=== PATIENT | male | born 1975 | race African-American/Black ===

== ENCOUNTER 2017-11-27 18:22 | Emergency (ER) | payer OTHER ==
--- NOTE | 2017-11-27 19:47 | ER Document Report ---
ED General - General Mode of Arrival: Ambulatory Information source: Patient TRAVEL OUTSIDE OF THE [place] IN LAST 30 DAYS: No <BOZENA FRAZIER - Last Filed: 11/27/17 22:43> <KARINA EID - Last Filed: 11/28/17 02:01> - General Chief Complaint: Lip Swelling Stated Complaint: LIP SWOLLEN Time Seen by Provider: 11/27/17 19:38 Notes: 42 y.o. male with DM, depression, anxiety and HTN for which he takes Lisinopril presents to the ED with lip edema of onset 0500 this morning. He reports taking Lisinopril today but reports swelling prior to taking his does today. He denies any itchiness to his lips or throat, swelling to his throat or any trouble breathing. (BOZENA FRAZIER) - Related Data Allergies/Adverse Reactions: MILA Inhibitors Allergy (Intermediate, Verified 11/27/17 22:33) Facial swelling Past Medical History - General Information source: Patient, [facility] Records - Social History Smoking Status: Unknown if Ever Smoked Frequency of alcohol use: Occasional Drug Abuse: Marijuana - per previous records Lives with: Spouse/Significant other Family History: Hypertension - Past Medical History Cardiac Medical History: Reports: Hx Hypertension Endocrine Medical History: Reports: Hx Diabetes Mellitus Type 2 GI Medical History: Reports: Hx Gastroesophageal Reflux Disease Psychiatric Medical History: Reports: Hx Anxiety, Hx Depression Past Surgical History: Reports: Hx Orthopedic Surgery - left ankle, right arm - Immunizations Hx Diphtheria, Pertussis, Tetanus Vaccination: Yes <BOZENA FRAZIER - Last Filed: 11/27/17 22:43> Review of Systems - Review of Systems Constitutional: No symptoms reported EENT: See HPI, Other - Lip swelling. denies: Throat swelling Cardiovascular: No symptoms reported Respiratory: See HPI Gastrointestinal: No symptoms reported Genitourinary: No symptoms reported Male Genitourinary: No symptoms reported Musculoskeletal: No symptoms reported Skin: No symptoms reported Hematologic/Lymphatic: No symptoms reported Neurological/Psychological: No symptoms reported <BOZENA FRAZIER - Last Filed: 11/27/17 22:43> Physical Exam <BOZENA FRAZIER - Last Filed: 11/27/17 22:43> <KARINA EID - Last Filed: 11/28/17 02:01> - Vital signs Vitals: Temp Pulse Resp BP Pulse Ox 98.7 F 107 H 16 131/77 H 98 11/27/17 18:28 11/27/17 18:28 11/27/17 18:28 11/27/17 18:28 11/27/17 18:28 - Notes Notes: Physical Exam: General: Alert, no acute distress. HEENT: Normocephalic. Atraumatic. PERRL. Extraocular movements intact. Oropharynx clear. Edema to bilateral upper lip. Lower lip with LT sided edema. Neck: Supple. Non-tender. Respiratory: No respiratory distress. Clear and equal breath sounds bilaterally. Cardiovascular: Regular rate and rhythm. Abdominal: Normal Inspection. Non-tender. No distension. Normal Bowel Sounds. Back: Non-tender. No deformity or step off. Extremities: Moves all four extremities. Upper extremities: Normal inspection. Normal ROM. Lower extremities: Normal inspection. No edema. Normal ROM. Neurological: Normal cognition. AAOx3. Normal speech. Psychological: Normal affect. Normal Mood. Skin: Warm. Dry. Normal color. (BOZENA FRAZIER) Course - Laboratory Result Diagrams: 11/27/17 19:55 11/27/17 19:55 <BOZENA FRAZIER - Last Filed: 11/27/17 22:43> - Laboratory Result Diagrams: 11/27/17 19:55 11/27/17 19:55 <KARINA EID - Last Filed: 11/28/17 02:01> - Re-evaluation Re-evalutation: 11/27/17 20:34 Rechecked patient: No worsening edema. 11/27/17 21:14 No further swelling. (BOZENA FRAZIER) 11/28/17 22:00 Patient is a 42-year-old male who comes in with lip swelling. No oropharyngeal swelling. Patient takes lisinopril and his last dose was at 9 AM. Patient has been monitored in the emergency department for about 5 hours with no worsening of his symptoms. He is able to handle secretions, tox, breathing, swallowing without difficulty. Patient is to follow-up with his doctor and to start losartan if he is unable to get in quickly for a follow-up appointment. MILA inhibitors have been listed as an allergy for him. Understands and agrees with plan. Stable for discharge. (KARINA EID) - Vital Signs Vital signs: Temp Pulse Resp BP Pulse Ox 98.1 F 74 14 128/72 H 100 11/27/17 22:34 11/27/17 22:34 11/27/17 22:34 11/27/17 22:34 11/27/17 22:34 - Laboratory Laboratory results interpreted by me: 11/27/17 11/27/17 19:55 19:55 MCV 77 L MCH 26.2 L RDW 16.4 H Chloride 96 L Glucose 238 H Calcium 10.3 H Discharge <BOZENA FRAZIER - Last Filed: 11/27/17 22:43> <KARINA EID - Last Filed: 11/28/17 02:01> - Discharge Clinical Impression: Angioedema Qualifiers: Encounter type: initial encounter Qualified Code(s): T78.3XXA - Angioneurotic edema, initial encounter Disposition: HOME, SELF-CARE Instructions: Angioedema ([facility]) Additional Instructions: Please follow-up with your doctor this week. Please never take lisinopril again. Prescriptions: Losartan Potassium 25 mg PO DAILY #30 tablet Forms: Return to Work Scribe Attestation: 11/28/17 02:01 I personally performed the services described in the documentation, reviewed and edited the documentation which was dictated to the scribe in my presence, and it accurately records my words and actions. (KARINA EID) Scribe Documentation - Scribe Written by Medardo:: Medardo Spaulding 11/27/17 194 acting as scribe for :: Joseph <BOZENA FRAZIER - Last Filed: 11/27/17 22:43>
[2017-11-27] MEDS ORDERED: FAMOTIDINE INJ/PF 20 MG/2 ML SDV IV ONE (19:49)
[2017-11-27] MEDS ORDERED: METHYLPREDNISOLONE INJ 125 MG/2 ML SDV IV ONE (19:49)
[2017-11-27 20:09] LABS: ABSOLUTE BASOPHILS # (AUTO) 0.1 10^3/uL (0.0-0.2); ABSOLUTE EOSINOPHILS # (AUTO) 0.2 10^3/uL (0.0-0.6); ABSOLUTE LYMPHOCYTES (AUTO) 2.2 10^3/uL (0.5-4.7); ABSOLUTE MONOCYTES (AUTO) 0.7 10^3/uL (0.1-1.4); ABSOLUTE NEUT (AUTO) 5.6 10^3/uL (1.7-8.2); BASOPHILS % (AUTO) 1.1 % (0-2); EOSINOPHILS % (AUTO) 1.9 % (0-6); HEMATOCRIT 40.7 % (37.9-51.0); HEMOGLOBIN 13.8 g/dL (13.5-17.0); LYMPHOCYTES % (AUTO) 25.4 % (13-45); MEAN CORPUSCULAR HEMOGLOBIN 26.2 pg (27.0-33.4); MEAN CORPUSCULAR VOLUME 77 fl (80-97); MONOCYTES % (AUTO) 7.8 % (3-13); PLATELET COUNT 285 10^3/uL (150-450); RED BLOOD COUNT 5.28 10^6/uL (4.35-5.55); RED CELL DISTRIBUTION WIDTH 16.4 % (11.5-14.0); SEGMENTED NEUTROPHILS % (AUTO) 63.8 % (42-78); TOTAL CELLS COUNTED % (AUTO) 100 %; WHITE BLOOD COUNT 8.8 10^3/uL (4.0-10.5)
[2017-11-27 20:18] LABS: ANION GAP 14 (5-19); BLOOD UREA NITROGEN 19 mg/dL (7-20); CALCIUM 10.3 mg/dL (8.4-10.2); CARBON DIOXIDE 28 mmol/L (22-30); CHLORIDE 96 mmol/L (98-107); GLUCOSE 238 mg/dL (75-110); POTASSIUM 4.4 mmol/L (3.6-5.0); SODIUM 138.3 mmol/L (137-145)
[2017-11-27] MEDS ORDERED: NORMAL SALINE 1000 ML 1,000 ML IV ONE (20:28)
[2017-11-27 22:36] VITALS: BP 128/72
== END 2017-11-27 22:45 | disposition home or self-care (01) ==
LOC: ER 18:22
DX: T78.3XXA Angioneurotic edema, initial encounter (principal); X58.XXXA Exposure to other specified factors, initial encounter; I10 Essential (primary) hypertension; E11.9 Type 2 diabetes mellitus without complications; K21.9 Gastro-esophageal reflux disease without esophagitis
CPT/HCPCS: 99283; 96361; 96374; 96375; 36415; 85025; 80048; J2930; J7030; S0028

== ENCOUNTER 2018-03-31 11:06 | Emergency (ER) | payer OTHER ==
[2018-03-31 11:15] VITALS: BP 131/80
--- NOTE | 2018-03-31 11:20 | ER Document Report ---
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 No previous injury to the hip and no known injury before this started hurting. Movement makes it worse. No fever. Associated Symptoms: None Exacerbated by: Movement Relieved by: Denies - ROS ROS below otherwise negative: Yes Systems Reviewed and Negative: Yes All other systems reviewed and negative Past Medical History - General Information source: Patient - Social History Smoking Status: Never Smoker Lives with: Family Family History: Hypertension - Past Medical History Cardiac Medical History: Reports: Hx Hypertension Endocrine Medical History: Reports: Hx Diabetes Mellitus Type 2 Renal/ Medical History: Denies: Hx Peritoneal Dialysis GI Medical History: Reports: Hx Gastroesophageal Reflux Disease Psychiatric Medical History: Reports: Hx Anxiety, Hx Depression Past Surgical History: Reports: Hx Orthopedic Surgery - left ankle, right arm - Immunizations Hx Diphtheria, Pertussis, Tetanus Vaccination: Yes Vertical Provider Document - CONSTITUTIONAL Agree With Documented VS: Yes Exam Limitations: No Limitations - INFECTION CONTROL TRAVEL OUTSIDE OF THE [place] IN LAST 30 DAYS: No - GI/ABDOMEN Gastrointestinal: Abdomen Soft, Abdomen Non-Tender, No Organomegaly, Normal Bowel Sounds - MUSCULOSKELETAL/EXTREMETIES Musculoskeletal/Extremeties: Tender - right anterior proximal thigh muscle and tendon into the pelvis, no redness, no swelling, rash. Notes: Pulses are normal in the right leg there is no area edema or swelling. - NEURO Level of Consciousness: Awake, Alert Motor/Sensory: No Motor Deficit, No Sensory Deficit - DERM Integumentary: No Rash Course - Re-evaluation Re-evalutation: 03/31/18 12:45 X-ray negative per radiologist - Vital Signs Vital signs: Temp Pulse Resp BP Pulse Ox 98.5 F 85 14 131/80 H 95 03/31/18 11:13 03/31/18 11:13 03/31/18 11:13 03/31/18 11:13 03/31/18 11:13 Discharge - Discharge Clinical Impression: Rt upper thigh and groin muscle strain Condition: Good Disposition: HOME, SELF-CARE Instructions: Acetaminophen, Muscle Relaxers ([facility]), Muscle Strain ([facility]), Warm Packs ([facility]) Additional Instructions: warm compress Tylenol up to 4000 mg a day for pain Flexeril as a muscle relaxer up to 3 times a day See your doctor for follow-up Return to the emergency room any concerns Copy of negative imaging report given to you Prescriptions: Cyclobenzaprine HCl [Flexeril 10 Mg Tablet] 10 mg PO TIDP PRN #20 tablet PRN Reason: Referrals: CHAMP RIBEIRO MD [NO LOCAL MD] - Follow up as needed
[2018-03-31] MEDS ORDERED: OXYCODONE-ACETAMINOPHEN 5-325 MG TABLET PO ONE (11:48)
[2018-03-31] MEDS ORDERED: ONDANSETRON 4 MG TAB.RAPDIS PO ONE (11:48)
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
== END 2018-03-31 13:00 | disposition home or self-care (01) ==
LOC: ER 11:06
DX: S39.011A Strain of muscle, fascia and tendon of abdomen, initial encounter (principal); M25.551 Pain in right hip; X50.3XXA Overexertion from repetitive movements, initial encounter; I10 Essential (primary) hypertension; E11.9 Type 2 diabetes mellitus without complications
CPT/HCPCS: 99283; 73502; S0119

== ENCOUNTER 2019-08-13 17:56 | Emergency (ER) | payer OTHER ==
[2019-08-13] MEDS ORDERED: ONDANSETRON 4 MG TAB.RAPDIS PO ONE (21:07)
[2019-08-13] MEDS ORDERED: NORMAL SALINE 1000 ML 1,000 ML IV ONE (21:08)
--- NOTE | 2019-08-13 21:09 | ER Document Report ---
ED Medical Screen (RME) - General Chief Complaint: Nausea Stated Complaint: DIARRHEA,NAUSEA,SHORT OF BREATH Time Seen by Provider: 08/13/19 21:07 Mode of Arrival: Wheelchair Information source: Patient Notes: Patient is a 44-year-old male with history of diabetes and hypertension presenting to the emergency department with 1 month history of cough. Patient reports that is a productive cough. Patient reports over the last 5 days he has now developed chills, body aches, nausea and vomiting. Patient alert, oriented, no acute distress noted. Lung sounds clear and equal bilaterally. I have greeted and performed a rapid initial assessment of this patient. A comprehensive ED assessment and evaluation of the patient, analysis of test results and completion of the medical decision making process will be conducted by additional ED providers. I have specifically instructed the patient or family members with the patient to immediately return to any nursing staff should anything change in the patient's condition or with their chief complaint. TRAVEL OUTSIDE OF THE [place] IN LAST 30 DAYS: No - Related Data Allergies/Adverse Reactions: MILA Inhibitors Allergy (Intermediate, Verified 11/27/17 22:33) Facial swelling Past Medical History - Past Medical History Cardiac Medical History: Reports: Hx Hypertension Endocrine Medical History: Reports: Hx Diabetes Mellitus Type 2 Renal/ Medical History: Denies: Hx Peritoneal Dialysis GI Medical History: Reports: Hx Gastroesophageal Reflux Disease Psychiatric Medical History: Reports: Hx Anxiety, Hx Depression Past Surgical History: Reports: Hx Orthopedic Surgery - left ankle, right arm - Immunizations Hx Diphtheria, Pertussis, Tetanus Vaccination: Yes Physical Exam - Vital signs Vitals: Temp Pulse Resp BP Pulse Ox 98.4 F 73 18 104/61 97 08/13/19 19:49 08/13/19 19:49 08/13/19 19:49 08/13/19 19:49 08/13/19 19:49 Course - Vital Signs Vital signs: Temp Pulse Resp BP Pulse Ox 98.4 F 73 18 104/61 97 08/13/19 19:49 08/13/19 19:49 08/13/19 19:49 08/13/19 19:49 08/13/19 19:49
--- NOTE | 2019-08-13 22:00 | RADIOLOGY REPORT (SQ) ---
Chest 2 view on 08/13/2019 at 9:45 PM CLINICAL INDICATION: Cough, chills COMPARISON: 05/31/2013 FINDINGS: There is mild elevation of the right hemidiaphragm. Lungs are clear. Cardiac, hilar and mediastinal contours are within normal limits. Pulmonary vascularity is within normal limits. There is slight scoliosis of the spine. IMPRESSION: No acute disease.
[2019-08-13 23:59] LABS: ABSOLUTE EOSINOPHILS # (AUTO) 0.1 10^3/uL (0.0-0.6); ABSOLUTE LYMPHOCYTES (AUTO) 1.6 10^3/uL (0.5-4.7); ABSOLUTE MONOCYTES (AUTO) 0.6 10^3/uL (0.1-1.4); ABSOLUTE NEUT (AUTO) 2.6 10^3/uL (1.7-8.2); BASOPHILS % (AUTO) 0.6 % (0-2); EOSINOPHILS % (AUTO) 1.8 % (0-6); HEMATOCRIT 42.8 % (37.9-51.0); HEMOGLOBIN 14.7 g/dL (13.5-17.0); LYMPHOCYTES % (AUTO) 32.8 % (13-45); MEAN CORPUSCULAR HEMOGLOBIN 27.2 pg (27.0-33.4); MEAN CORPUSCULAR HGB CONC 34.5 g/dL (32.0-36.0); MEAN CORPUSCULAR VOLUME 79 fl (80-97); MONOCYTES % (AUTO) 12.2 % (3-13); PLATELET COUNT 220 10^3/uL (150-450); RED BLOOD COUNT 5.41 10^6/uL (4.35-5.55); RED CELL DISTRIBUTION WIDTH 15.9 % (11.5-14.0); SEGMENTED NEUTROPHILS % (AUTO) 52.6 % (42-78); TOTAL CELLS COUNTED % (AUTO) 100 %
[2019-08-14 00:13] LABS: A TYPE INFLUENZA AG NEGATIVE (NEGATIVE); B INFLUENZA AG NEGATIVE (NEGATIVE)
[2019-08-14 00:17] LABS: ALBUMIN 4.4 g/dL (3.5-5.0); ALKALINE PHOSPHATASE 83 U/L (38-126); ANION GAP 13 (5-19); ASPARTATE AMINO TRANSFERASE 29 U/L (17-59); BILIRUBIN,DIRECT 0.3 mg/dL (0.0-0.4); BILIRUBIN,TOTAL 0.8 mg/dL (0.2-1.3); BLOOD UREA NITROGEN 15 mg/dL (7-20); CALCIUM 9.3 mg/dL (8.4-10.2); CARBON DIOXIDE 27 mmol/L (22-30); CHLORIDE 98 mmol/L (98-107); GLUCOSE 176 mg/dL (75-110); POTASSIUM 4.5 mmol/L (3.6-5.0); TOTAL PROTEIN 8.3 g/dL (6.3-8.2)
[2019-08-14] MEDS ORDERED: KETOROLAC TROMETHAMINE INJ/PF 30 MG/1 ML SDV IV ONE (00:50)
--- NOTE | 2019-08-14 01:03 | ER Document Report ---
ED Flu Like - General Chief Complaint: Flu Symptoms Stated Complaint: DIARRHEA,NAUSEA,SHORT OF BREATH Time Seen by Provider: 08/13/19 21:07 Mode of Arrival: Wheelchair Information source: Patient Notes: Patient is a 44-year-old male with history of diabetes and hypertension presenting to the emergency department with 1 month history of cough. Patient reports that is a productive cough. Patient reports over the last 5 days he has now developed chills, body aches, nausea and vomiting. TRAVEL OUTSIDE OF THE [place] IN LAST 30 DAYS: No - Related Data Allergies/Adverse Reactions: MILA Inhibitors Allergy (Intermediate, Verified 11/27/17 22:33) Facial swelling Home Medications: Omeprazole. Metoprolol. Lisinopril. Metformin. Glipizide. Atorvastatin Past Medical History - General Information source: Patient - Social History Smoking Status: Former Smoker Frequency of alcohol use: None Drug Abuse: Marijuana Family History: Hypertension Patient has suicidal ideation: No Patient has homicidal ideation: No - Past Medical History Cardiac Medical History: Reports: Hx Hypertension Endocrine Medical History: Reports: Hx Diabetes Mellitus Type 2 Renal/ Medical History: Denies: Hx Peritoneal Dialysis GI Medical History: Reports: Hx Gastroesophageal Reflux Disease Psychiatric Medical History: Reports: Hx Anxiety, Hx Depression Past Surgical History: Reports: Hx Orthopedic Surgery - left ankle, right arm - Immunizations Hx Diphtheria, Pertussis, Tetanus Vaccination: Yes Review of Systems - Review of Systems Constitutional: See HPI EENT: No symptoms reported Cardiovascular: No symptoms reported Respiratory: See HPI Gastrointestinal: See HPI Genitourinary: No symptoms reported Male Genitourinary: No symptoms reported Musculoskeletal: No symptoms reported Skin: No symptoms reported Hematologic/Lymphatic: No symptoms reported Neurological/Psychological: No symptoms reported Physical Exam - Vital signs Vitals: Temp Pulse Resp BP Pulse Ox 98.4 F 73 18 104/61 97 08/13/19 19:49 08/13/19 19:49 08/13/19 19:49 08/13/19 19:49 08/13/19 19:49 - Notes Notes: PHYSICAL EXAMINATION: GENERAL: Well-appearing, well-nourished and in no acute distress. HEAD: Atraumatic, normocephalic. EYES: Pupils equal round and reactive to light, extraocular movements intact, sclera anicteric, conjunctiva are normal. ENT: Nares patent, oropharynx clear without exudates. Moist mucous membranes. NECK: Normal range of motion, supple without lymphadenopathy LUNGS: Breath sounds clear to auscultation bilaterally and equal. No wheezes rales or rhonchi. HEART: Regular rate and rhythm without murmurs ABDOMEN: Soft, nontender, nondistended abdomen. No guarding, no rebound. No masses appreciated. Musculoskeletal: Normal range of motion, no pitting or edema. No cyanosis. NEUROLOGICAL: Cranial nerves grossly intact. Normal speech, normal gait. Normal sensory, motor exams PSYCH: Normal mood, normal affect. SKIN: Warm, Dry, normal turgor, no rashes or lesions noted. Course - Re-evaluation Re-evalutation: Patient alert, oriented, vital signs within normal limits. Physical exam unremarkable. Work-up today was unremarkable. Patient reports he feels much improved after administration of IV fluids here in the emergency department. Likely viral illness. Patient be discharged home in stable condition at this time. - Vital Signs Vital signs: Temp Pulse Resp BP Pulse Ox 98.4 F 73 18 104/61 97 08/13/19 19:49 08/13/19 19:49 08/13/19 19:49 08/13/19 19:49 08/13/19 19:49 - Laboratory Result Diagrams: 08/13/19 23:25 08/13/19 23:25 Laboratory results interpreted by me: 08/13/19 08/13/19 23:25 23:25 MCV 79 L RDW 15.9 H Glucose 176 H Total Protein 8.3 H Discharge - Discharge Clinical Impression: Influenza-like illness Condition: Stable Disposition: HOME, SELF-CARE Additional Instructions: Your symptoms are most likely due to a viral infection it should resolve over the next 7-14 days. Take medications as prescribed. Drink plenty of fluids. You may also use tylenol or ibuprofen as needed for aches and throat discomfort. Please be sure to get rest. Return to the emergency department he began having difficulty breathing, chest pain, persistent vomiting, or any other symptoms that are concerning to you. Prescriptions: Benzonatate [Tessalon Perles 100 mg Capsule] 1 - 2 tab PO Q8HP PRN #30 capsule PRN Reason: Prednisone [Deltasone 20 mg Tablet] 3 tab PO DAILY 5 Days #15 tablet Forms: Return to Work
[2019-08-14 01:27] VITALS: BP 101/56
== END 2019-08-14 01:26 | disposition home or self-care (01) ==
LOC: ER 17:56
DX: J11.1 Influenza due to unidentified influenza virus with other respiratory manifestations (principal); R19.7 Diarrhea, unspecified; R11.0 Nausea; R06.02 Shortness of breath; R05 Cough; F12.10 Cannabis abuse, uncomplicated; M79.10 Myalgia, unspecified site; R11.2 Nausea with vomiting, unspecified; I10 Essential (primary) hypertension; E11.9 Type 2 diabetes mellitus without complications; Z79.899 Other long term (current) drug therapy; Z87.891 Personal history of nicotine dependence
CPT/HCPCS: 99283; 96361; 96374; 36415; 85025; 80053; 87804; 71046; S0119; J1885; J7030

== ENCOUNTER 2019-10-26 14:56 | Emergency (ER) | payer OTHER ==
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
--- NOTE | 2019-10-26 15:40 | RADIOLOGY REPORT (SQ) ---
EXAM DESCRIPTION: KNEE LEFT 4 VIEW IMAGES COMPLETED DATE/TIME: 10/26/2019 3:28 pm REASON FOR STUDY: pain, swelling COMPARISON: None. NUMBER OF VIEWS: Four views. TECHNIQUE: AP, lateral, and both oblique radiographic images acquired of the left knee. LIMITATIONS: None. FINDINGS: MINERALIZATION: Normal. BONES: No acute fracture or dislocation. No worrisome bone lesions. Mild 3 compartment degenerative c hanges. JOINT: Joint effusion. OTHER: No other significant finding. IMPRESSION: Mild degenerative changes and joint effusion. TECHNICAL DOCUMENTATION: JOB ID: [id number] 2010 [employer]- All Rights Reserved Reading location - IP/workstation name: [email or web address]
[2019-10-26 16:21] LABS: APPEARANCE,URINE CLOUDY; BILIRUBIN,URINE NEGATIVE (NEGATIVE); COLOR,URINE YELLOW; GLUCOSE, URINE 150 mg/dL (NEGATIVE); KETONES,URINE NEGATIVE (NEGATIVE); LEUKOCYTE ESTERASE,URINE LARGE (NEGATIVE); NITRITE,URINE NEGATIVE (NEGATIVE); PROTEIN,URINE 30 mg/dL (NEGATIVE); URINE SPECIFIC GRAVITY 1.019
[2019-10-26] MEDS ORDERED: METRONIDAZOLE 500 MG TABLET PO ONE (16:48)
[2019-10-26] MEDS ORDERED: CEFTRIAXONE INJ 250 MG VIAL IM ONE (16:49)
[2019-10-26] MEDS ORDERED: AZITHROMYCIN 250 MG TABLET PO ONE (16:49)
[2019-10-26] MEDS ORDERED: LIDOCAINE 1% INJ-PF (10 MG/ML) 30 ML SDV IM ONE (16:49)
--- NOTE | 2019-10-26 16:55 | ER Document Report ---
ED General - General Chief Complaint: Penile Discharge Stated Complaint: KNEE PAIN Time Seen by Provider: 10/26/19 14:59 Primary Care Provider: DARY ALDANA [Primary Care Provider] - Follow up as needed Mode of Arrival: Wheelchair Notes: Patient is a 44-year-old male presenting to the emergency department with concern for left knee pain. Patient reports history of chronic knee pain however he woke up with it very swollen. He also reports concern for possible gonorrhea. He states he is having burning with urination. He does report new partners lately. Denies any fevers. TRAVEL OUTSIDE OF THE [place] IN LAST 30 DAYS: No - Related Data Allergies/Adverse Reactions: MILA Inhibitors Allergy (Intermediate, Verified 10/26/19 14:59) Facial swelling Home Medications: metformin. lisinopril. glipizide. atorvastatin. migraines. depression. anxiety Past Medical History - General Information source: Patient - Social History Smoking Status: Current Every Day Smoker Chew tobacco use (# tins/day): No Frequency of alcohol use: Social Drug Abuse: Marijuana Family History: Hypertension Patient has homicidal ideation: No - Past Medical History Cardiac Medical History: Reports: Hx Hypertension Neurological Medical History: Reports: Hx Migraine Endocrine Medical History: Reports: Hx Diabetes Mellitus Type 2 Renal/ Medical History: Denies: Hx Peritoneal Dialysis GI Medical History: Reports: Hx Gastroesophageal Reflux Disease Psychiatric Medical History: Reports: Hx Anxiety, Hx Depression Past Surgical History: Reports: Hx Orthopedic Surgery - left ankle, right arm - Immunizations Hx Diphtheria, Pertussis, Tetanus Vaccination: Yes Review of Systems - Review of Systems Genitourinary: See HPI Musculoskeletal: See HPI -: Yes All other systems reviewed and negative Physical Exam - Vital signs Vitals: Temp Pulse Resp BP Pulse Ox 97.9 F 99 18 142/87 H 99 10/26/19 14:59 10/26/19 14:59 10/26/19 14:59 10/26/19 14:59 10/26/19 14:59 - Notes Notes: PHYSICAL EXAMINATION: GENERAL: Well-appearing, well-nourished and in no acute distress. HEAD: Atraumatic, normocephalic. EYES: Pupils equal round and reactive to light, extraocular movements intact, sclera anicteric, conjunctiva are normal. ENT: Nares patent, oropharynx clear without exudates. Moist mucous membranes. NECK: Normal range of motion, supple without lymphadenopathy LUNGS: Breath sounds clear to auscultation bilaterally and equal. No wheezes rales or rhonchi. HEART: Regular rate and rhythm without murmurs ABDOMEN: Soft, nontender, nondistended abdomen. No guarding, no rebound. No masses appreciated. Musculoskeletal: Normal range of motion, no pitting or edema. No cyanosis. Swelling noted to left knee. No erythema or warmth. NEUROLOGICAL: Cranial nerves grossly intact. Normal speech, normal gait. Normal sensory, motor exams PSYCH: Normal mood, normal affect. SKIN: Warm, Dry, normal turgor, no rashes or lesions noted. Course - Re-evaluation Re-evalutation: Knee X-Ray 10/26/19 15:06 IMPRESSION: Mild degenerative changes and joint effusion. Microbiology 10/26/19 15:50 Urine Culture - Final Clean Catch Midstream 2,000 col/ml Laboratory 10/26/19 10/26/19 10/26/19 15:50 15:50 16:03 POC Glucose 239 H Urine Color YELLOW Urine Appearance CLOUDY Urine pH 5.0 Ur Specific [place] 1.019 Urine Protein 30 H Urine Glucose (UA) 150 H Urine Ketones NEGATIVE Urine Blood MODERATE H Urine Nitrite NEGATIVE Urine Bilirubin NEGATIVE Urine Urobilinogen 2.0 H Ur Leukocyte Esterase LARGE H Urine WBC (Auto) >182 Urine RBC (Auto) 69 Urine WBC Clumps MOD Urine Mucus (Auto) RARE Urine Ascorbic Acid NEGATIVE Chlamydia DNA (PCR) NOT DETECTED N.gonorrhoeae DNA (PCR) DETECTED H - Vital Signs Vital signs: Temp Pulse Resp BP Pulse Ox 98.1 F 85 20 154/99 H 100 10/26/19 17:33 10/26/19 17:33 10/26/19 17:33 10/26/19 17:33 10/26/19 17:33 - Laboratory Laboratory results interpreted by sc: 10/26/19 10/26/19 10/26/19 15:50 15:50 16:03 POC Glucose 239 H Urine Protein 30 H Urine Glucose (UA) 150 H Urine Blood MODERATE H Urine Urobilinogen 2.0 H Ur Leukocyte Esterase LARGE H N.gonorrhoeae DNA (PCR) DETECTED H Discharge - Discharge Clinical Impression: Knee effusion, left, Dysuria, Possible exposure to STD Condition: Stable Disposition: HOME, SELF-CARE Additional Instructions: Knee Effusion You have a fluid collection in the knee joint, called an effusion. This fluid build up can occur from irritation of the synovial membrane lining the knee joint or from a more serious injury to the knee. Irritation of the membrane can occur from excessive, repetitive knee activitiy, like kneeling or squatting for extended periods or even just excessive walking, jogging, or skiing. Effusions also can occur with infections in the joint and with some arthritic conditions, especially gout. Fluid collections in these situations are usually yellow in color and either clear or cloudy in appearance. Significant injury to the knee can result in fluid collection which is partly or entirely blood and this condition is known as a hemarthrosis of the knee joint. If the fluid collection is not too large and/or painful, it can be managed conservatively with rest, ice packs, and anti-inflammatory and pain medications as needed. If the fluid collection is large and very painful, the knee joint can be drained (aspirated) by a relatively minor procedure of inserting a needle in the joint and removing some or all of the fluid present. If your knee was aspirated, you should rest it as much as possible for a few days, keep a pressure dressing around the knee and apply ice packs for at least 48 - 72 hours. If there are signs of developing infection such as heat and redness of the knee, fever, etc. you should return immediately for a recheck. Please take pain medication as prescribed. Please also take ibuprofen 600 mg every 6 hours. You were treated for possible exposure to STDs. The chlamydia and gonorrhea testing are pending. Please refrain from unprotected sexual intercourse for 7 to 10 days. Prescriptions: Hydrocodone/Acetaminophen [[place] 5-325 mg Tablet] 1 tab PO Q6H #12 tablet Forms: Return to Work Referrals: [facility] [[facility]] - Follow up as needed
[2019-10-26 17:35] VITALS: BP 154/99
[2019-10-26 17:36] LABS: CHLAM PCR NOT DETECTED (NOT DETECT)
== END 2019-10-26 17:43 | disposition home or self-care (01) ==
LOC: ER 14:56
DX: M25.462 Effusion, left knee (principal); R30.0 Dysuria; R36.9 Urethral discharge, unspecified; I10 Essential (primary) hypertension; E11.9 Type 2 diabetes mellitus without complications; Z20.2 Contact with and (suspected) exposure to infections with a predominantly sexual mode of transmission
CPT/HCPCS: 99283; 96372; 87086; 82962; 81001; 87491; 87591; 73564; J3490; J0696

== ENCOUNTER 2019-10-28 18:10 | Emergency (ER) | payer OTHER ==
[2019-10-28 18:26] VITALS: BP 122/79
[2019-10-28] MEDS ORDERED: KETOROLAC TROMETHAMINE 60 MG/2 ML SDV IM ONE (18:34)
--- NOTE | 2019-10-28 18:35 | ER Document Report ---
HPI - HPI Patient complains to provider of: left knee pain Time Seen by Provider: 10/28/19 18:32 Onset: Other Onset/Duration: Persistent Quality of pain: Achy Pain Level: 5 Context: 44-year-old male with history of diabetes and aortic aneurysm returns to the emergency department with complaints of left knee pain. 2 days ago patient presented to the emergency department with left knee pain. He reported he slept wrong when he woke up his left knee was hurting and is swollen. Reports history of knee pain from being in the and playing football in [facility]. Patient was treated with hydrocodone but reports his knee is still hurting. He reports the knee is swollen more. No other complaints such as fever vomiting diarrhea. Associated Symptoms: None Exacerbated by: Movement, Walking Relieved by: Denies Similar symptoms previously: Yes Recently seen / treated by doctor: Yes - REPRODUCTIVE Reproductive: DENIES: : Past Medical History - General Information source: Patient - Social History Smoking Status: Current Every Day Smoker Cigarette use (# per day): Yes Frequency of alcohol use: Social Drug Abuse: Marijuana Lives with: Family Family History: Hypertension Patient has suicidal ideation: No Patient has homicidal ideation: No - Past Medical History Cardiac Medical History: Reports: Hx Hypertension Neurological Medical History: Reports: Hx Migraine Endocrine Medical History: Reports: Hx Diabetes Mellitus Type 2 Renal/ Medical History: Denies: Hx Peritoneal Dialysis GI Medical History: Reports: Hx Gastroesophageal Reflux Disease Psychiatric Medical History: Reports: Hx Anxiety, Hx Depression Past Surgical History: Reports: Hx Orthopedic Surgery - left ankle, right arm - Immunizations Hx Diphtheria, Pertussis, Tetanus Vaccination: Yes Vertical Provider Document - CONSTITUTIONAL Agree With Documented VS: Yes Exam Limitations: No Limitations General Appearance: WD/WN, No Apparent Distress - INFECTION CONTROL TRAVEL OUTSIDE OF THE [place] IN LAST 30 DAYS: No - HEENT HEENT: Atraumatic, Normocephalic - NECK Neck: Supple - RESPIRATORY Respiratory: No Respiratory Distress - CARDIOVASCULAR Cardiovascular: Regular Rate - MUSCULOSKELETAL/EXTREMETIES Musculoskeletal/Extremeties: Tender - left knee ttp, no obvious deformity no erythema slight swelling no warmth pedal pulse +3 cap refill less than 2 second s. - NEURO Level of Consciousness: Awake, Alert, Appropriate Motor/Sensory: No Motor Deficit - DERM Integumentary: Warm, Dry Course - Re-evaluation Re-evalutation: 10/28/19 18:39 Patient presents today with complaints of left knee pain. He was evaluated 2 days ago and treated for the effusion of the left knee. He reports pain increasing with 10/28/19 19:29 Patient instructed on joint effusion. His knee was rewrapped with his Leon wrap that he brought with him. He was instructed on radiology results. We also discussed signs and symptoms of septic joint. He was instructed to return immediately to the emergency department for redness increased pain and swelling with warmth to his knee. He verbalized understanding to all instructions. Knee X-Ray 10/28/19 18:34 IMPRESSION: Patellofemoral degenerative joint changes. Joint effusion. - Vital Signs Vital signs: Temp Pulse Resp BP Pulse Ox 98.8 F 99 18 122/79 95 10/28/19 18:29 10/28/19 18:19 10/28/19 18:19 10/28/19 18:19 10/28/19 18:19 - Diagnostic Test Radiology reviewed: Image reviewed, Reports reviewed Procedures - Immobilization Left Knee Pre-Proc Neuro Vasc Exam: Normal Immobilizer type: Leon wrap Performed by: ELOISA - whitney kohli Post-Proc Neuro Vasc Exam: Unchanged from pre-exam Alignment checked and good: Yes Notes: 10/28/19 19:31 Patient brought Leon wrap with him Discharge - Discharge Clinical Impression: Knee effusion, left Left knee pain Qualifiers: Chronicity: unspecified Qualified Code(s): M25.562 - Pain in left knee Condition: Stable Disposition: HOME, SELF-CARE Instructions: Leon Wrap ([facility]), Use of Crutches ([facility]), Ice & Elevation ([facility]), Oral Narcotic Medication ([facility]) Additional Instructions: *You have been evaluated for left knee pain, effusion *Maintain the leon wrap, use your crutches *Rest/Ice/Elevate your knee *Follow up with orthopedics within one week *Take medication as prescribed *Return to ED for worsening condition, changes, needs Prescriptions: Oxycodone HCl/Acetaminophen [Percocet 5-325 mg Tablet] 1 tab PO ASDIR PRN #10 tablet PRN Reason: Referrals: [facility] [Primary Care [facility]] - Follow up in 3-5 days LEEANN WHARTON JR, DO [ACTIVE PROVISIONAL STAFF] - Follow up as needed MANUELA SHELTON MD [ACTIVE PROVISIONAL STAFF] - Follow up as needed [facility] [Provider Group] - Follow up as needed
--- NOTE | 2019-10-28 19:11 | RADIOLOGY REPORT (SQ) ---
EXAM DESCRIPTION: KNEE LEFT 4 VIEW IMAGES COMPLETED DATE/TIME: 10/28/2019 6:44 pm REASON FOR STUDY: worsening pain COMPARISON: None. NUMBER OF VIEWS: Four views. TECHNIQUE: AP, lateral, and both oblique radiographic images acquired of the left knee. LIMITATIONS: None. FINDINGS: MINERALIZATION: Normal. BONES: No acute fracture or dislocation. No worrisome bone lesions. JOINT: There is a joint effusion. Posterior patellar spurs are present. SOFT TISSUES: No soft tissue swelling. No radio-opaque foreign body. OTHER: No other significant finding. IMPRESSION: Patellofemoral degenerative joint changes. Joint effusion. TECHNICAL DOCUMENTATION: JOB ID: [id number] 2010 [employer]- All Rights Reserved Reading location - IP/workstation name: [email or web address]
== END 2019-10-28 19:24 | disposition home or self-care (01) ==
LOC: ER 18:10
DX: M25.462 Effusion, left knee (principal); M25.562 Pain in left knee; M79.89 Other specified soft tissue disorders; E11.9 Type 2 diabetes mellitus without complications; F17.200 Nicotine dependence, unspecified, uncomplicated; F12.10 Cannabis abuse, uncomplicated; I10 Essential (primary) hypertension
CPT/HCPCS: 99283; 96372; 73564; J1885

== ENCOUNTER 2020-01-25 07:50 | Emergency (ER) | payer OTHER ==
--- NOTE | 2020-01-25 09:52 | ER Document Report ---
ED General - General Chief Complaint: Sore Throat Stated Complaint: SORE THROAT/NAUSEA/VOMITING/DIAHERRA/BLURRY VISION Primary Care Provider: [facility] [[facility]] - Follow up as needed Notes: Patient is a 44-year-old -[place] male with past medical history of diabetes and a 5 cm aortic aneurysm that is routinely monitored who presents to the emergency department with a chief complaint of nausea, vomiting and diarrhea. States the diarrhea began about 3 days ago. More recently had an episode of emesis. Reports this morning he awoke and had a sore throat. His was concerned and had him come for evaluation. Patient denies any known fevers. He denies any chest pain, abdominal pain or shortness of breath. He reports that he just recently restarted on his metformin and the last time he did that he was having episodes of diarrhea. He denies any known sick contacts or any recent travel. No known exposures to COVID-19. No chills or sweats. TRAVEL OUTSIDE OF THE [place] IN LAST 30 DAYS: No - Related Data Allergies/Adverse Reactions: MILA Inhibitors Allergy (Intermediate, Verified 01/25/20 07:56) Facial swelling Home Medications: Omeprazole. Metoprolol. Lisinopril. Atorvastatin. Glipizide Past Medical History - Social History Smoking Status: Current Every Day Smoker Chew tobacco use (# tins/day): No Frequency of alcohol use: Occasional Drug Abuse: Marijuana Family History: Hypertension Patient has homicidal ideation: No - Past Medical History Cardiac Medical History: Reports: Hx Hypertension Neurological Medical History: Reports: Hx Migraine Endocrine Medical History: Reports: Hx Diabetes Mellitus Type 2 Renal/ Medical History: Denies: Hx Peritoneal Dialysis GI Medical History: Reports: Hx Gastroesophageal Reflux Disease Psychiatric Medical History: Reports: Hx Anxiety, Hx Depression Past Surgical History: Reports: Hx Orthopedic Surgery - left ankle, right arm - Immunizations Hx Diphtheria, Pertussis, Tetanus Vaccination: Yes Review of Systems - Review of Systems Constitutional: Weakness. denies: Fever EENT: Throat pain Cardiovascular: denies: Chest pain Respiratory: denies: Cough, Short of breath Gastrointestinal: Diarrhea, Nausea, Vomiting. denies: Abdominal pain Genitourinary: denies: Pain Male Genitourinary: No symptoms reported Musculoskeletal: denies: Muscle pain Skin: No symptoms reported Hematologic/Lymphatic: denies: Easy bruising Neurological/Psychological: denies: Headaches Physical Exam - Vital signs Vitals: Temp Pulse Resp BP Pulse Ox 99.1 F 78 20 124/82 98 01/25/20 07:54 01/25/20 07:54 01/25/20 07:54 01/25/20 07:54 01/25/20 07:54 - General General appearance: Appears well, Alert In distress: None - HEENT Head: Normocephalic, Atraumatic Eyes: Normal Conjunctiva: Normal Pupils: PERRL Ears: Normal External canal: Normal Tympanic membrane: Normal Nasal: Normal Mouth/Lips: Normal Mucous membranes: Normal Pharynx: Other - Posterior pharyngeal erythema. Patent airway. And secretions well. No sublingual or submental swelling. No trismus. Neck: Normal, Supple. No: Lymphadenopathy - Respiratory Respiratory status: No respiratory distress Chest status: Nontender Breath sounds: Normal Chest palpation: Normal - Cardiovascular Rhythm: Regular Heart sounds: Normal auscultation - Abdominal Inspection: Normal Distension: No distension Bowel sounds: Normal Tenderness: Nontender Organomegaly: No organomegaly - Neurological Neuro grossly intact: Yes Cognition: Normal Orientation: AAOx4 - Psychological Associated symptoms: Normal affect, Normal mood - Skin Skin Temperature: Warm Skin Moisture: Dry Skin Color: Normal Course - Re-evaluation Re-evalutation: 01/25/20 12:45 Patient with an elevated glucose in the 200s. Some trace ketones in the urine. He is not acidotic, normal bicarb. No evidence of DKA. He has had no episodes of vomiting here. Zofran given. Strep swab was negative. He will be swabbed for COVID-19. He will be deemed a patient under investigation. We discussed that he will need to self quarantine at home for at least 10 days or until a negative result is found per CDC guidelines. I discussed with him the importance of outpatient follow-up with his primary doctor and advised that he return here or any ER immediately with any new, persistent or worsening symptoms. He verbalized understood and agreed. - Vital Signs Vital signs: Temp Pulse Resp BP Pulse Ox 99.1 F 78 20 124/82 98 01/25/20 07:57 01/25/20 07:54 01/25/20 07:54 01/25/20 07:54 01/25/20 07:54 - Laboratory Result Diagrams: 01/25/20 09:27 01/25/20 10:10 Laboratory results interpreted by me: 01/25/20 01/25/20 01/25/20 09:17 09:27 10:10 RBC 5.85 H RDW 17.0 H Sodium 135.2 L Glucose 244 H Total Protein 8.5 H Urine Glucose (UA) 50 H Urine Ketones TRACE H Discharge - Discharge Clinical Impression: Person under investigation for COVID-19, Hyperglycemia, Nausea vomiting and diarrhea, Sore throat Condition: Stable Disposition: HOME, SELF-CARE Instructions: Diarrhea, Nonspecific ([facility]), Vomiting ([facility]), Sore Throat ([facility]), COVID-19 Guidance for Persons Under Investigation Additional Instructions: Follow-up with your regular doctor in 2 to 3 days for reevaluation. Return here or any ER immediately with any new, persistent or worsening symptoms. Please remain in quarantine in your home as you are a patient under investigation for COVID-19. Please stay quarantined for at least 10 days or until you receive a negative result. Prescriptions: Ondansetron [Zofran Odt 4 mg Tablet] 4 mg PO Q8 PRN #20 tab.rapdis PRN Reason: [facility]errals: [facility] [[facility]] - Follow up as needed
[2020-01-25 09:55] LABS: ABSOLUTE BASOPHILS # (AUTO) 0.1 10^3/uL (0.0-0.2); ABSOLUTE EOSINOPHILS # (AUTO) 0.1 10^3/uL (0.0-0.6); ABSOLUTE LYMPHOCYTES (AUTO) 2.3 10^3/uL (0.5-4.7); ABSOLUTE MONOCYTES (AUTO) 0.5 10^3/uL (0.1-1.4); ABSOLUTE NEUT (AUTO) 7.3 10^3/uL (1.7-8.2); BASOPHILS % (AUTO) 0.8 % (0-2); EOSINOPHILS % (AUTO) 0.7 % (0-6); HEMATOCRIT 46.7 % (37.9-51.0); HEMOGLOBIN 16.1 g/dL (13.5-17.0); LYMPHOCYTES % (AUTO) 22.4 % (13-45); MEAN CORPUSCULAR HEMOGLOBIN 27.5 pg (27.0-33.4); MEAN CORPUSCULAR HGB CONC 34.4 g/dL (32.0-36.0); MEAN CORPUSCULAR VOLUME 80 fl (80-97); MONOCYTES % (AUTO) 5.2 % (3-13); PLATELET COUNT 274 10^3/uL (150-450); RED BLOOD COUNT 5.85 10^6/uL (4.35-5.55); SEGMENTED NEUTROPHILS % (AUTO) 70.9 % (42-78); TOTAL CELLS COUNTED % (AUTO) 100 %; WHITE BLOOD COUNT 10.3 10^3/uL (4.0-10.5)
[2020-01-25 09:57] LABS: APPEARANCE,URINE CLEAR; BILIRUBIN,URINE NEGATIVE (NEGATIVE); COLOR,URINE YELLOW; GLUCOSE, URINE 50 mg/dL (NEGATIVE); KETONES,URINE TRACE mg/dL (NEGATIVE); LEUKOCYTE ESTERASE,URINE NEGATIVE (NEGATIVE); NITRITE,URINE NEGATIVE (NEGATIVE); PROTEIN,URINE NEGATIVE (NEGATIVE); URINE SPECIFIC GRAVITY 1.012; UROBILINOGEN,URINE NEGATIVE mg/dL (<2.0)
--- NOTE | 2020-01-25 10:13 | RADIOLOGY REPORT (SQ) ---
EXAM DESCRIPTION: CHEST SINGLE VIEW IMAGES COMPLETED DATE/TIME: 01/25/2020 9:59 am REASON FOR STUDY: bed 36- fever cough COMPARISON: None. NUMBER OF VIEWS: One view. TECHNIQUE: Single frontal radiographic view of the chest acquired. LIMITATIONS: None. FINDINGS: LUNGS AND PLEURA: No opacities, masses or pneumothorax. No pleural effusion. MEDIASTINUM AND HILAR STRUCTURES: No masses. Contour normal. HEART AND VASCULAR STRUCTURES: Heart normal in size. Normal vasculature. BONES: No acute findings. HARDWARE: None in the chest. OTHER: No other significant finding. IMPRESSION: NO SIGNIFICANT RADIOGRAPHIC FINDING IN THE CHEST. TECHNICAL DOCUMENTATION: JOB ID: [id number] 2010 [employer]- All Rights Reserved Reading location - IP/workstation name: [email or web address]
--- NOTE | 2020-01-25 10:17 | RADIOLOGY REPORT (SQ) ---
EXAM DESCRIPTION: KUB/ABDOMEN (SINGLE VIEW) IMAGES COMPLETED DATE/TIME: 01/25/2020 9:59 am REASON FOR STUDY: nausea/vomit COMPARISON: None. NUMBER OF VIEWS: One view. TECHNIQUE: Supine radiographic image of the abdomen acquired. LIMITATIONS: None. FINDINGS: BOWEL GAS PATTERN: Abundant gas and fecal material from the cecum to the rectum. No dilat ed loops. CALCIFICATIONS: No suspicious calcifications. SOFT TISSUES: No gross mass or suggestion of organomegaly. HARDWARE: None in the abdomen. BONES: No acute fracture. No worrisome bone lesions. OTHER: No other significant finding. IMPRESSION: Mild fecal retention. TECHNICAL DOCUMENTATION: JOB ID: [id number] 2010 [employer]- All Rights Reserved Reading location - IP/workstation name: [email or web address]
[2020-01-25 10:55] LABS: ALBUMIN 4.7 g/dL (3.5-5.0); ALKALINE PHOSPHATASE 115 U/L (38-126); ANION GAP 12 (5-19); ASPARTATE AMINO TRANSFERASE 21 U/L (17-59); BILIRUBIN,TOTAL 0.9 mg/dL (0.2-1.3); BLOOD UREA NITROGEN 18 mg/dL (7-20); CALCIUM 10.1 mg/dL (8.4-10.2); CARBON DIOXIDE 23 mmol/L (22-30); CHLORIDE 100 mmol/L (98-107); GLUCOSE 244 mg/dL (75-110); POTASSIUM 4.5 mmol/L (3.6-5.0); TOTAL PROTEIN 8.5 g/dL (6.3-8.2)
[2020-01-25] MEDS ORDERED: ONDANSETRON 4 MG TAB.RAPDIS PO ONE (12:44)
[2020-01-25 13:39] VITALS: BP 127/81
== END 2020-01-25 13:38 | disposition home or self-care (01) ==
LOC: ER 07:50
DX: E11.65 Type 2 diabetes mellitus with hyperglycemia (principal); J02.9 Acute pharyngitis, unspecified; R11.2 Nausea with vomiting, unspecified; R19.7 Diarrhea, unspecified; H53.8 Other visual disturbances; Z20.828 Contact with and (suspected) exposure to other viral communicable diseases; Z88.8 Allergy status to other drugs, medicaments and biological substances; Z79.899 Other long term (current) drug therapy; F17.200 Nicotine dependence, unspecified, uncomplicated; F12.10 Cannabis abuse, uncomplicated; I10 Essential (primary) hypertension
CPT/HCPCS: 99283; 36415; 87040; 87070; 87880; 82962; 83690; 85025; 87635; 80053; 81001; 71045; 74018; S0119; C9803

== ENCOUNTER 2020-04-26 21:09 | Emergency (ER) | payer OTHER ==
--- NOTE | 2020-04-26 22:55 | EKG REPORT ---
SEVERITY:- ABNORMAL ECG - SINUS TACHYCARDIA LEFT ATRIAL ABNORMALITY LEFT VENTRICULAR HYPERTROPHY : Confirmed by: Memo Dyer 26-Apr-2020 22:53:35
[2020-04-26] MEDS ORDERED: ONDANSETRON HCL INJ/PF 4 MG/2 ML SDV IV ONE (23:23)
[2020-04-26] MEDS ORDERED: NORMAL SALINE 1000 ML 1,000 ML IV ONE (23:24)
[2020-04-26 23:37] LABS: APPEARANCE,URINE CLEAR; BILIRUBIN,URINE NEGATIVE (NEGATIVE); COLOR,URINE YELLOW; GLUCOSE, URINE NEGATIVE (NEGATIVE); KETONES,URINE NEGATIVE (NEGATIVE); PROTEIN,URINE 30 mg/dL (NEGATIVE); URINE SPECIFIC GRAVITY 1.015; UROBILINOGEN,URINE NEGATIVE mg/dL (<2.0)
--- NOTE | 2020-04-26 23:42 | ER Document Report ---
ED Medical Screen (RME) - General Chief Complaint: Shortness Of Breath Stated Complaint: SOB,VOMITTING,HEADACHE Time Seen by Provider: 04/26/20 23:21 Primary Care Provider: DARY ALDANA [Primary Care Provider] - Follow up as needed Mode of Arrival: Ambulatory Information source: Patient Notes: Patient is a 45-year-old -Beninese male coming in today with intractable abdominal pain and vomiting for the past day or so. He has no fevers or chills. Complains of severe weakness. States unable to walk because of weakness. Chest pain. Denies shortness of breath. General exam ill-appearing Cardiac regular rate and rhythm Pulmonary no respiratory distress Vital signs are stable. Will need bed in the ER for further treatment I have greeted and performed a rapid initial assessment of this patient. A comprehensive ED assessment and evaluation of the patient, analysis of test results and completion of the medical decision making process will be conducted by additional ED providers. TRAVEL OUTSIDE OF THE [place] IN LAST 30 DAYS: No - Related Data Allergies/Adverse Reactions: MILA Inhibitors Allergy (Intermediate, Verified 01/25/20 07:56) Facial swelling Past Medical History - Past Medical History Cardiac Medical History: Reports: Hx Hypertension Neurological Medical History: Reports: Hx Migraine Endocrine Medical History: Reports: Hx Diabetes Mellitus Type 2 Renal/ Medical History: Denies: Hx Peritoneal Dialysis GI Medical History: Reports: Hx Gastroesophageal Reflux Disease Psychiatric Medical History: Reports: Hx Anxiety, Hx Depression Past Surgical History: Reports: Hx Orthopedic Surgery - left ankle, right arm - Immunizations Hx Diphtheria, Pertussis, Tetanus Vaccination: Yes Physical Exam - Vital signs Vitals: Temp Pulse Resp BP Pulse Ox 97.5 F 106 H 18 106/64 99 04/26/20 21:24 04/26/20 21:24 04/26/20 21:24 04/26/20 21:24 04/26/20 21:24 Course - Vital Signs Vital signs: Temp Pulse Resp BP Pulse Ox 97.5 F 106 H 18 106/64 99 04/26/20 21:24 04/26/20 21:24 04/26/20 21:24 04/26/20 21:24 04/26/20 21:24 - Laboratory Laboratory results interpreted by me: 04/26/20 04/26/20 21:26 23:15 POC Glucose 218 H Urine Protein 30 H Doctor's Discharge - Discharge Referrals: [facility]OV[facility],DARY [Primary Care Provider] - Follow up as needed
[2020-04-27 01:15] LABS: ABSOLUTE BASOPHILS # (AUTO) 0.1 10^3/uL (0.0-0.2); ABSOLUTE LYMPHOCYTES (AUTO) 1.7 10^3/uL (0.5-4.7); ABSOLUTE MONOCYTES (AUTO) 0.8 10^3/uL (0.1-1.4); ABSOLUTE NEUT (AUTO) 14.8 10^3/uL (1.7-8.2); BASOPHILS % (AUTO) 0.6 % (0-2); EOSINOPHILS % (AUTO) 0.1 % (0-6); HEMATOCRIT 51.1 % (37.9-51.0); HEMOGLOBIN 17.5 g/dL (13.5-17.0); MEAN CORPUSCULAR HEMOGLOBIN 27.2 pg (27.0-33.4); MEAN CORPUSCULAR HGB CONC 34.2 g/dL (32.0-36.0); MEAN CORPUSCULAR VOLUME 80 fl (80-97); MONOCYTES % (AUTO) 4.4 % (3-13); PLATELET COUNT 305 10^3/uL (150-450); RED BLOOD COUNT 6.43 10^6/uL (4.35-5.55); RED CELL DISTRIBUTION WIDTH 16.6 % (11.5-14.0); SEGMENTED NEUTROPHILS % (AUTO) 84.9 % (42-78); TOTAL CELLS COUNTED % (AUTO) 100 %; WHITE BLOOD COUNT 17.4 10^3/uL (4.0-10.5)
[2020-04-27 01:33] LABS: ALBUMIN 4.7 g/dL (3.5-5.0); ALKALINE PHOSPHATASE 106 U/L (38-126); ANION GAP 17 (5-19); ASPARTATE AMINO TRANSFERASE 20 U/L (17-59); BILIRUBIN,DIRECT 0.1 mg/dL (0.0-0.4); BILIRUBIN,TOTAL 0.9 mg/dL (0.2-1.3); BLOOD UREA NITROGEN 23 mg/dL (7-20); CALCIUM 10.2 mg/dL (8.4-10.2); CARBON DIOXIDE 32 mmol/L (22-30); CHLORIDE 92 mmol/L (98-107); GLUCOSE 261 mg/dL (75-110); POTASSIUM 4.6 mmol/L (3.6-5.0)
[2020-04-27] MEDS ORDERED: NORMAL SALINE 1000 ML 1,000 ML IV ONE (07:33)
[2020-04-27] MEDS ORDERED: MORPHINE SULFATE 10 MG/ML INJ IV ONE (07:34)
[2020-04-27] MEDS ORDERED: FAMOTIDINE INJ/PF 20 MG/2 ML SDV IV ONE (07:37)
--- NOTE | 2020-04-27 07:41 | ER Document Report ---
ED General - General Chief Complaint: Nausea/Vomiting Stated Complaint: SHORTNESS OF BREATH,VOMITING,HEADHACHE Time Seen by Provider: 04/26/20 23:21 Primary Care Provider: JOVAN,DARY [Primary Care Provider] - Follow up as needed Mode of Arrival: Ambulatory TRAVEL OUTSIDE OF THE [place] IN LAST 30 DAYS: No - HPI Notes: Chief complaint: Nausea, vomiting and abdominal pain History of present illness: 45-year-old male followed by the [place] with history of hypertension and diabetes mellitus type 2 experienced onset of nausea and vomi ting yesterday afternoon and subsequently developed epigastric pain which is now become more generalized and is most significant in the right lower quadrant area. Pain is presently rated 5/10. Is described as dull. He has no prior history of any abdominal surgery. He is a cigarette smoker. Social alcohol consumption. Occasional use of marijuana. He denies fever or chills. He denies respiratory symptoms. He has no known exposure to COVID-19. - Related Data Allergies/Adverse Reactions: MILA Inhibitors Allergy (Intermediate, Verified 04/27/20 00:32) Facial swelling Home Medications: DIABETES. HTN. AAA 5 CM Past Medical History - General Information source: Patient - Social History Smoking Status: Current Every Day Smoker Frequency of alcohol use: Social Drug Abuse: None, Marijuana Family History: Hypertension - Past Medical History Cardiac Medical History: Reports: Hx Hypercholesterolemia, Hx Hypertension Neurological Medical History: Reports: Hx Migraine Endocrine Medical History: Reports: Hx Diabetes Mellitus Type 2 Renal/ Medical History: Denies: Hx Peritoneal Dialysis GI Medical History: Reports: Hx Gastroesophageal Reflux Disease Psychiatric Medical History: Reports: Hx Anxiety, Hx Depression Past Surgical History: Reports: Hx Orthopedic Surgery - left ankle, right arm - Immunizations Hx Diphtheria, Pertussis, Tetanus Vaccination: Yes Review of Systems - Review of Systems Notes: Constitutional: Negative for fever. Generalized weakness. HENT: Negative for sore throat. Eyes: Negative for visual changes. Cardiovascular: Negative for chest pain. Respiratory: Negative for shortness of breath. Gastrointestinal: As per HPI. Genitourinary: Negative for dysuria. Musculoskeletal: Negative for back pain. Skin: Negative for rash. Neurological: Negative for headaches, focal weakness or numbness. 10 point ROS negative except as marked above and in HPI. Physical Exam - Vital signs Vitals: Temp Pulse Resp BP Pulse Ox 97.5 F 106 H 18 106/64 99 04/26/20 21:24 04/26/20 21:24 04/26/20 21:24 04/26/20 21:24 04/26/20 21:24 - Notes Notes: GENERAL: Slender male approximately stated age who appears moderately uncomfortable. SKIN: Good turgor no rashes. HEAD: Normocephalic atraumatic. EYES: PERRLA. EOMI. Conjunctivae and sclerae clear. EARS: CANALS AND TMS CLEAR. NOSE: CLEAR. MOUTH: Dry oral mucosa. Good dentition. No stridor or edema. No drooling. NECK: Supple. No masses or thyromegaly. No adenopathy. Carotids 2+ without bruits. No JVD. BACK: Symmetrical without tenderness. CHEST: Respirations unlabored. Breath sounds clear and symmetrical. HEART: Regular rhythm. No murmur gallop or rub. ABDOMEN: Soft and appears mildly distended. Moderately tender right lower quadrant without masses, organomegaly or rebound. Bowel sounds normally active. No bruits. GENITALIA: Deferred. EXTREMITIES: No edema. No calf tenderness. Cap refill less than 1.5 seconds. Dorsalis pedis and posterior tibial pulses 3+ and symmetrical. NEUROLOGICAL: GCS 15. Alert and oriented x3. Fluent speech. Cranial nerves II through XII intact. Sensorimotor and cerebellar normal. Normal tone. PSYCHIATRIC: Appropriate affect. Course - Re-evaluation Re-evalutation: 04/27/20 07:40 Patient is tender in the right lower quadrant and has significant elevation of white count at 16,000. Primary concern would be possible appendicitis. CT with IV contrast has been requested. N.p.o. IV normal saline. IV morphine. IV Zofran. IV Pepcid. 04/27/20 12:30 Follow-up exam at this time shows patient has had resolution of his pain and nausea. He is nontender on follow-up exam. His CT showed normal visualization of the appendix. He had a small amount of free fluid in the pelvis. White count was initially elevated and his labs were otherwise unremarkable. Clinically I think this may be a viral syndrome. Nasal swab for Covid is been collected. Patient is tolerating p.o. fluids and crackers here without any difficulty. We will discharge him home and recommend that he have repeat examination by primary care doctor or return to the ER if necessary within the next 24 hours. He also understands to return here immediately for new or worsening symptoms. Findings, clinical impression and plan of treatment have been discussed with patient/family. Understanding of current findings and recommendations has been acknowledged by them and there is agreement regarding disposition and follow-up. - Vital Signs Vital signs: Temp Pulse Resp BP Pulse Ox 97.8 F 106 H 17 112/79 96 04/27/20 11:00 04/26/20 21:24 04/27/20 11:01 04/27/20 11:00 04/27/20 11:01 - Laboratory Result Diagrams: 04/27/20 00:58 04/27/20 00:58 Laboratory results interpreted by me: 04/26/20 04/26/20 04/27/20 21:26 23:15 00:58 WBC 17.4 H RBC 6.43 H Hgb 17.5 H Hct 51.1 H RDW 16.6 H Lymph % (Auto) 10.0 L Absolute Neuts (auto) 14.8 H Seg Neutrophils % 84.9 H Chloride Carbon Dioxide BUN Creatinine Est GFR ( Amer) Est GFR (MDRD) Non-Af Glucose POC Glucose 218 H Urine Protein 30 H 04/27/20 00:58 WBC RBC Hgb Hct RDW Lymph % (Auto) Absolute Neuts (auto) Seg Neutrophils % Chloride 92 L Carbon Dioxide 32 H BUN 23 H Creatinine 1.85 H Est GFR ( Amer) 49 L Est GFR (MDRD) Non-Af 40 L Glucose 261 H POC Glucose Urine Protein - Diagnostic Test Radiology reviewed: Image reviewed, Reports reviewed Radiology results interpreted by me: 04/27/20 12:30 Abdomen/Pelvis CT 04/26/20 23:24 IMPRESSION: 1. Small amount of free fluid in the pelvis, nonspecific. 2. No evidence of bowel obstruction. 3. Incidental left adrenal nodule. - EKG Interpretation by Me Additional EKG results interpreted by me: 04/27/20 07:41 Twelve-lead EKG reviewed by me contemporaneously: 2118 hrs. Indication for study: Upper abdominal pain with vomiting, hypertension Rhythm: Sinus tachycardia Rate: 112 Intervals: Normal QRS axis: Normal +[address]/T wave changes: None Comparison with prior tracing: No significant change compared with prior study 07/06/2013 Interpretation: Sinus tachycardia Discharge - Discharge Clinical Impression: Vomiting Abdominal pain Qualifiers: Abdominal location: generalized Qualified Code(s): R10.84 - Generalized abdominal pain Disposition: HOME, SELF-CARE Instructions: COVID-19 Guidance for Persons Under Investigation, Antinausea Medication ([facility]), Abdominal Pain ([facility]) Additional Instructions: You need follow-up examination by your primary care physician within the next 24 hours. If this is not possible you may return to the emergency department for recheck. Return here immediately for new or worsening symptoms: Pain that is worsening or unimproved Uncontrolled vomiting High fever or shaking chills Overall worsening Prescriptions: Ondansetron [Zofran Odt 4 mg Tablet] 1 - 2 tab PO Q4H PRN #15 tab.rapdis PRN Reason: For Nausea/Vomiting [facility]errals: [facility] [[facility]] - Follow up as needed
[2020-04-27] MEDS ORDERED: ONDANSETRON HCL INJ/PF 4 MG/2 ML SDV ONE (08:32)
--- NOTE | 2020-04-27 09:52 | RADIOLOGY REPORT (SQ) ---
EXAM DESCRIPTION: CT ABD/PELVIS WITH IV ONLY IMAGES COMPLETED DATE/TIME: 04/27/2020 8:57 am REASON FOR STUDY: intractable vomiting with firm abdomen COMPARISON: None. TECHNIQUE: CT scan of the abdomen and pelvis performed using helical scanning technique with dynamic intravenous contrast injection. No oral contrast. Images reviewed with lung, soft tissue, and bone windows. Reconstructed coronal and sagittal MPR images reviewed. Delayed images for evaluation of the urinary system also acquired. All images stored on PACS. All CT scanners at this facility use dose modulation, iterative reconstruction, and/or weight based d osing when appropriate to reduce radiation dose to as low as reasonably achievable (ALARA). [facility]: Dose Right [facility]: CareDose [facility]: Dose Right [facility]: Teradose 4D [facility]: New [employer] CONTRAST TYPE AND DOSE: contrast/concentration: Isovue 350.00 mmol/ml; Total Contrast Delivered: 100 .0 ml; Total Saline Delivered: 70.0 ml RENAL FUNCTION: Creatinine 1.85 RADIATION DOSE: CT Rad equipment meets quality standard of care and radiation dose reduction techniq ues were employed. CTDIvol: 11.7 - 16.0 mGy. DLP: 1586 mGy-cm.. LIMITATIONS: None. FINDINGS: LOWER CHEST: Hiatal hernia. LIVER: Normal size. Fatty change. No masses. No dilated ducts. SPLEEN: Normal size. No focal lesions. PANCREAS: No masses. No significant calcifications. No adjacent inflammation or peripancreatic fluid collections. Pancreatic duct not dilated. GALLBLADDER: No identified stones by CT criteria. No inflammatory changes to suggest cholecystitis. ADRENAL GLANDS: 15 mm left adrenal nodule measuring 116 HU. RIGHT KIDNEY AND URETER: No solid masses. No significant calcifications. No hydronephrosis or hyd roureter. LEFT KIDNEY AND URETER: No solid masses. No significant calcifications. No hydronephrosis or hydr oureter. AORTA AND VESSELS: No aneurysm. No dissection. Renal arteries, SMA, celiac without stenosis. RETROPERITONEUM: No retroperitoneal adenopathy, hemorrhage or masses. BOWEL AND PERITONEAL CAVITY: No masses or inflammatory changes. No free fluid or peritoneal masses. APPENDIX: Normal. PELVIS: No mass. Small amount of free fluid. Normal bladder. ABDOMINAL WALL: No masses. No hernias. BONES: No significant or acute findings. OTHER: No other significant finding. IMPRESSION: 1. Small amount of free fluid in the pelvis, nonspecific. 2. No evidence of bowel obstruction. 3. Incidental left adrenal nodule. TECHNICAL DOCUMENTATION: JOB ID: [id number] Quality ID # [id number]: Final reports with documentation of one or more dose reduction techniques (e.g., Au tomated exposure control, adjustment of the mA and/or kV according to patient size, use of iterative reconstruction technique) 2010 [email or web address]- All Rights Reserved Reading location - IP/workstation name: [facility]aton
[2020-04-27 12:47] VITALS: BP 133/84
== END 2020-04-27 12:49 | disposition home or self-care (01) ==
LOC: ER 21:09
DX: R11.2 Nausea with vomiting, unspecified (principal); R10.84 Generalized abdominal pain; R00.0 Tachycardia, unspecified; D72.829 Elevated white blood cell count, unspecified; R10.813 Right lower quadrant abdominal tenderness; I10 Essential (primary) hypertension; E11.9 Type 2 diabetes mellitus without complications; F17.210 Nicotine dependence, cigarettes, uncomplicated; R53.1 Weakness; Z87.19 Personal history of other diseases of the digestive system; Z88.8 Allergy status to other drugs, medicaments and biological substances
CPT/HCPCS: 93005; 99285; 96361; 96374; 96375; 36415; 82962; 83690; 85025; 80053; 81001; 74177; 93010; J2270; J2405; J7030; S0028